=== PATIENT | female | born 1970 | race African-American/Black ===

== ENCOUNTER → 2020-01-26 09:00 | Outpatient (BNVA) | payer SELFPAY | PROVIDERS: Visit Provider Physician Assistant Medical | DX: Z76.89 Persons encountering health services in other specified circumstances (principal) ==

== ENCOUNTER → 2020-06-07 10:48 | Outpatient (BNVA) | payer OTHER, SELFPAY | PROVIDERS: Visit Provider Internal Medicine | DX: M75.102 Unspecified rotator cuff tear or rupture of left shoulder, not specified as traumatic (principal) | CPT/HCPCS: 99202 ==

== ENCOUNTER → 2020-06-14 09:01 | Outpatient (BNVA) | payer OTHER, SELFPAY | PROVIDERS: Visit Provider Internal Medicine | DX: M75.42 Impingement syndrome of left shoulder (principal) | CPT/HCPCS: 99213 ==

== ENCOUNTER → 2020-06-21 | Outpatient (BNVA) | payer OTHER, SELFPAY | PROVIDERS: Visit Provider Internal Medicine | DX: M75.42 Impingement syndrome of left shoulder (principal) | CPT/HCPCS: 99213 ==

== ENCOUNTER → 2020-07-05 11:35 | Outpatient (BNVA) | payer OTHER, SELFPAY | PROVIDERS: Visit Provider Internal Medicine | DX: S46.012D Strain of muscle(s) and tendon(s) of the rotator cuff of left shoulder, subsequent encounter (principal); X58.XXXD Exposure to other specified factors, subsequent encounter | CPT/HCPCS: 99213 ==

== ENCOUNTER → 2020-07-19 13:26 | Outpatient (BNVA) | payer OTHER, SELFPAY | PROVIDERS: Visit Provider Internal Medicine | DX: M25.512 Pain in left shoulder (principal) | CPT/HCPCS: 99213 ==

== ENCOUNTER 2024-07-10 15:16 | Outpatient (REF) | payer OTHER, SELFPAY ==
[2024-07-10 15:38] LABS: MANUAL DIFF FLAG NO
[2024-07-10 15:52] LABS: Basophils Percent Auto 0.5 % (0-2); Eosinophils Absolute Auto 0.1 X10*3/uL (0.0-0.4); Eosinophils Percent Auto 1.4 % (0-4); Hematocrit 42.7 % (37.0-47.0); Hemoglobin 14.6 g/dl (12.0-16.0); Imm Gran Abs Auto 0.03 X10*3/uL (0.00-0.03); Imm Gran Pct Auto 0.4 % (0.0-0.4); Lymphocytes Absolute Auto 2.8 X10*3/uL (1.2-4.9); Lymphocytes Percent Auto 36.5 % (20-40); Mean Corpuscular HGB Conc 34.2 g/dl (31.0-35.0); Mean Corpuscular Hemoglobin 29.3 pg (27.0-33.0); Mean Corpuscular Volume 85.7 fL (80.0-98.0); Mean Platelet Volume 8.2 fL (9.4-12.3); Monocytes Absolute Auto 0.5 X10*3/uL (0.1-1.2); Monocytes Percent Auto 6.5 % (2-11); Neutrophils Absolute Auto 4.2 x10*3/uL (2.0-8.3); Neutrophils Percent Auto 54.7 % (45-73); Platelet Count 393 X10*3/uL (160-400); Red Blood Count 4.98 X10*6/uL (4.20-5.50); Red Cell Distribution Width 12.6 % (11.0-16.0); White Blood Count 7.6 X10*3/uL (4.8-10.8)
[2024-07-10 15:59] LABS: Estimated Average Glucose 157 mg/dL; Hemoglobin A1C 207.5473 umol/L; Hemoglobin A1c % 7.1 % (<6.0); Total Hemoglobin (HGBA1C) 3830.6089 umol/L
[2024-07-10 16:33] LABS: Alanine Aminotransferase 33 U/L (0-31); Alkaline Phosphatase 129 U/L (39-117); Anion Gap 14 (12-20); Aspartate Amino Transferase 31 U/L (5-31); Bilirubin Total 0.5 mg/dL (0.0-1.0); Blood Urea Nitrogen 13 mg/dL (9-16); Calcium 9.7 mg/dL (8.4-10.2); Carbon Dioxide 26 mmol/L (22-29); Chloride 104 mmol/L (96-108); Cholesterol 196 mg/dL (<200); Estimated Glomerular Filt Rate > 60; Glucose Random 111 mg/dL (60-115); HDL Cholesterol 60 mg/dL (>40); LDL Cholesterol Calculated 122 mg/dL (<100); Sodium 140 mmol/L (135-145); Total Protein 8.4 g/dL (6.5-8.0); Triglycerides 70 mg/dL (<150)
[2024-07-10 16:35] LABS: Creatinine Urine 270.56 mg/dL; Microalbum/Creatinine Ratio Ur 8.5 ug/mg cr (<30)
[2024-07-10 16:43] LABS: Vitamin B12 401 pg/mL (200-900)
[2024-07-10 17:39] LABS: Reflex LDLD? No
--- OUTSIDE RECORDS SUMMARY | 2024-07-10 18:04 | XMS_ITS | Clinical Summary ---
Author Organization [facility] [address] [place] [address] [place] [phone] Phone Care Team Providers Care Room Service Attendant Name Role Phone Refugio Godwin DO Primary Care Provider [phone] Allergies No known active allergies Medications FLUoxetine (PROzac) 10 mg capsule Take 1 capsule (10 mg total) by mouth 1 (one) time each day. 12/17/19 23 Active blood-glucose meter kit To check sugars 11/02/19 24 025 Active triamcinolone (KENALOG) 0.1 % cream Apply 3 times a day as needed for pruritis 07/10/19 22 Active blood sugar diagnostic (FreeStyle Lite Strips) test stripIndicatio ns:Type 2 diabetes mellitus with other specified complication, without long-term current use of insulin (CMS/[facility] V24, CMS/[facility] V28) Use as instructed 100 each 3 02/11/20 24 Active freestyle (FreeStyle Lancets) 28 gauge lancetsIndicat ions:Type 2 diabetes mellitus with other specified complication, without long-term current use of insulin (CMS/HCC V24, CMS/HCC V28) UP TO 2 TIMES DAILY 100 each 2 02/11/20 24 Active losartan (COZAAR) 25 mg tabletIndicati ons:Type 2 diabetes mellitus with other specified complication, without long-term current use of insulin (CMS/HCC V24, CMS/HCC V28) Take 0.5 tablets (12.5 mg total) by mouth 1 (one) time each day. 90 tablet 1 02/11/20 24 Active atorvastatin (LIPITOR) 10 mg tabletIndicati ons:Type 2 diabetes mellitus with other specified complication, without long-term current use of insulin ([facility] V24, [facility] V28) Take 1 tablet (10 mg total) by mouth 1 (one) time each day. 90 tablet 1 02/11/20 24 Active amoxicillin (AMOXIL) 875 mg tablet Take 1 tablet (875 mg total) by mouth 2 (two) times a day. for 7 days 02/19/20 24 Active metFORMIN (GLUCOPHAGE) 1,000 mg tablet Take 1 tablet (1,000 mg total) by mouth 2 (two) times a day with meals. 03/23/19 25 Active Mounjaro 5 mg/0.5 mL injection ADMINISTER 5 MG UNDER THE SKIN 1 TIME A WEEK 2 mL 1 07/11/19 25 Active Mounjaro 5 mg/0.5 mL injection ADMINISTER 5 MG UNDER THE SKIN 1 TIME A WEEK 2 mL 1 04/21/19 25 025 Discontinued Active Problems Problem Noted Date Diagnosed Date Anxiety 12/29/2023 Constipation 12/29/2023 Migraines 12/29/2023 Heart murmur, systolic 05/14/2021 Overview (12/29/2023): Split S2 Colon polyp 06/09/2019 Overview (12/29/2023): Repeat due 2022 Diabetes mellitus type 2 in nonobese ([facility] V24, [facility] V28) 02/17/2019 Overview (12/29/2023): A1C 03/02 of 14.8, started on metformin Encounters Date Type Department Care Team Description 05/25/2024 3:00 PM EDT Office Visit Orthopedic Surgery - [place] [address] [facility] [address] [place] [phone] Jose Bellamy, DPVonnie Type 2 diabetes mellitus with other specified complication, without long-term current use of insulin ([facility] V24, [facility] V28) (Primary Dx); Metatarsalgia of left foot; Metatarsalgia of right foot; Eccrine poroma of foot, right 05/23/2024 Lab Requisition [facility] - Main Lab [address] [facility] [place] [address] Yasmine Hanson MD Essential (primary) hypertension; Pure hypercholesterolemia, unspecified; Type 2 diabetes mellitus with diabetic neuropathy, unspecified ([facility] V24, [facility] V28) 04/13/2024 2:30 PM EST Consult Orthopedic Surgery - [place] [address] [facility] [address] [place] [address] Jose Bellamy DPM Metatarsalgia of left foot (Primary Dx); Type 2 diabetes mellitus with other specified complication, without long-term current use of insulin ([facility] V24, [facility] V28); Metatarsalgia of right foot; Hammertoes of both feet; Eccrine poroma of foot, right from Last 3 Months Immunizations Name Administration Dates Next Due Influenza Quadravalent, MDCK , 0.5ml, preservative free (Flucelvax) 6mo and older 12/22/2022,01/08/2022 Influenza trivalent, 0.5mL, preservative free (Fluarix; FluLaval; Fluzone) ages 6mo and older (Afluria) 3 years and older 12/28/2019,12/13/2014 TEEspy SARS-CoV-2 COVID-19, mRNA, LNP-S, preservative free 03/20/2021 Pneumococcal polysaccharide 23 valent (Pneumovax 23) 2yo and older 01/08/2022 Td Tetanus diptheria (Tdvax) 7yo and older 11/10 Tdap Tetanus diptheria acell ular pertussis (Boostrix; Adacel) 7yo and older 04/07/2011 Surgical History Surgery Date Site/Laterality Comments OTHER SURGICAL HISTORY PROCEDURE: ID TOTAL ABDOMINAL HYSTERECT W/WO RMVL TUBE OVARY; COMMENT: supracervical Medical History Medical History Date Comments H/O joint problems DX:H/O joint problems Anxiety DX:Anxiety Constipation DX:Constipation Migraines DX:Migraines Colon polyp 06/09/2019 DX:Colon polyp; COMMENT: Repeat due 2022 Family History Medical History Relation Name Comments Breast cancer Aunt maternal Hypertension Daughter Stroke Maternal Grandmother Colon cancer Mother Diabetes Mother Diabetes Paternal Grandmother Relation Name Status Comments Aunt Brother 1 Alive Brother 2 Alive Brother 3 Alive Brother 4 Alive Daughter Father Alive Maternal Grandmother Mother Alive Paternal Grandmother Sister 1 Alive Sister 2 Alive Social History Tobacco Use Types Packs/Day Years Used Date Smoking Tobacco: Never Smokeless Tobacco: Never Tobacco Cessation:Counseling Given: Not Answered Alcohol Use Standard Drinks/Week Comments Yes 0 (1 standard drink = 0.6 oz pur e alcohol) Comments No Sex and Gender Information Value Date Recorded Sex Assigned at Not on file Legal Sex Female 10:10 AM EST Gender Identity Not on file Sexual Orientation Not on file Obstetrics History Para Term AB IAB SAB Ectopic Multiple Livin g Live Births 1 1 1 1 Date Outcome GA Total Labor Labor//3rd Weight Sex Type Anes PTL Emilia A1 A5 Name Clin Term Last Filed Vital Signs Vital Sign Reading Time Taken Comments Blood Pressure 132/69 02/11/2024 3:31 PM EST Pulse 76 02/11/2024 3:31 PM EST Temperature 36.3 ??C (97.3 ??F) 02/11/2024 3:31 PM ES T Respiratory Rate - - Oxygen Saturation 98% 02/11/2024 3:31 PM EST Inhaled Oxygen Concentration - - Weight 88.9 kg (196 lb) 05/25/2024 3:14 PM EDT Height 180.3 cm (5' 10.98 ) 05/25/2024 3:14 PM E DT Body Mass Index 27.35 05/25/2024 3:14 PM EDT Plan of Treatment Health Maintenance Due Date Last Done Comments Diabetes: Annual Foot Exam 1981 Hepatitis B Vaccines (1 of 3 - 19+ 3-dose series) 1990 Zoster Vaccines (1 of 2) 1990 Depression Screening 02/21/2022 HIV Screening 02/21/2022 Social Influencers of Health Screening 02/21/2022 Diabetes: Annual GFR (Glomerular Filtration Rate) 07/09/2022 07/09/2021 Pneumococcal Vaccine: 50+ Years (2 of 2 - PCV) 01/08/2023 01/08/2022 Pneumococcal Vaccine: Pediatrics (0 to 5 Years) and At-Risk Patients (6 to 64 Years) (2 of 2 - PCV) 01/08/2023 01/08/2022 COVID-19 Vaccine ( season) 2023 03/20/2021, 07/31/2020, 07/10/2020 Diabetes: Blood Sugar Control Test (HGBA1C) 05/03/2024 11/01/2023, 11/01/2023 Hypertension/CHF/CAD Annual BMP Blood Test 05/23/2024 07/09/2021 Diabetes: Annual Retina Eye Exam 09/27/2024 09/28/2023 Diabetes: Annual Urine Albumin-Creatinine Ratio (uACR) 10/31/2024 11/01/2023 Influenza Vaccine (Season Ended) 2024 12/22/2022, 01/08/2022, 01/22/2021, Additional history exists Breast Cancer Screening 02/13/2026 02/14/20, 02/01/2023, 04/28/2021, Additional history exists Cholesterol Screening (Lipid Panel) 10/31/2028 11/01/2023, 11/01/2023 Colorectal Cancer Screening: Colonoscopy 04/06/2029 04/06/2019 DTaP,Tdap,and Td Vaccines (3 - Td or Tdap) 11/11/2031 11/10/2021, 04/07/2011 Hepatitis C Screening Completed 11/10/2021 HIB Vaccines Aged Out No longer eligi ble based on patient's age to complete this topic HPV Vaccines Aged Out No longer eligi ble based on patient's age to complete this topic Hepatitis A Vaccines Aged Out No long er eligible based on patient's age to complete this topic IPV Vaccines Aged Out No longer eligi ble based on patient's age to complete this topic MMR Vaccines Aged Out No longer eligi ble based on patient's age to complete this topic Meningococcal ACWY Vaccine Aged Out N o longer eligible based on patient's age to complete this topic Meningococcal B Vaccine Aged Out No l onger eligible based on patient's age to complete this topic RSV Immunization Patients Under 20 months Aged Out No longer eligible based on patient's age to complete this topic Varicella Vaccines Aged Out No longer eligible based on patient's age to complete this topic Procedures Procedure Name Priority Date/Time Associated Diagnosis Comments MG MAMMO DIGITAL SCREENING W SAFIA BILAT Routine 02/14/2024 4:18 PM EST Encounter for screening mammogram for breast cancer HM URINE ALBUMIN CREATININE RATIO Routine 11/01/2023 HEMOGLOBIN A1C Routine 11/01/2023 LIPID PANEL Routine 11/01/2023 DIABETES EYE EXAM Routine 09/28/2023 HEPATITIS C SCREENING Routine 11/10/2021 ANNUAL BMP BLOOD TEST Routine 07/09/2021 COLONOSCOPY Routine 04/06/2019 from Last 3 Months or Most Recently Relevant to Health Maintenance Results * MG Mammo Digital Screening w Safia bilat (02/14/2024 4:18 PM EST) Anatomical Region Laterality Modality Breast Bilateral Mammography 02/15/2024 9:04 AM EST Impressions 02/15/2024 9:11 AM EST Stable mammographic appearance of the breasts. ??No evidence of malignancy is seen. A negative mammogram in the presence of a clinically suspicious palpable abnormality does not preclude the possibility of malignancy or alter the indications for biopsy. BI-RADS: ??Category 1: Negative RECOMMENDATION(S): 1: Routine screening mammogram BILATERAL in 1 year. Mammo Location: [facility], [address] [place] [address], [facility], . -------- FINAL REPORT -------- Dictated By: Carin Mijares Dictated Date: 02/15/2024 09:04 ET Assigned Physician: Carin Mijares Reviewed and Electronically Signed By: Carin Mijares Signed Date: 02/15/2024 09:11 ET Workstation ID: [id number] Transcribed By: Self Edit Transcribed Date: 02/15/2024 09:04 ET Narrative 02/15/2024 9:11 AM EST EXAM: MG MAMMO DIGITAL SCREENING W SAFIA BILAT EXAM DATE: 02/14/2024 4:08 PM HISTORY: ??Breast cancer screen, avg risk, asymptomatic (Age => 40y) COMPARISON: Mammograms dating back to 04/18/2019 with most recent of 02/01/2023. TECHNIQUE: Bilateral digital breast tomosynthesis was performed in the CC and MLO projections. Computer aided detection with [employer] AI 3D 3.1 was employed. TISSUE DENSITY: c. ??The breasts are heterogeneously dense. FINDINGS: No suspicious masses, grouped microcalcifications, or areas of architectural distortion are seen. The skin and vascularity are unremarkable. Procedure Note Carin Mijares MD - 02/15/2024 EXAM: MAMMO DIGITAL SCREENING W SAFIA BILAT EXAM DATE: 02/14/2024 4:08 PM HISTORY: Breast cancer screen, avg risk, asymptomatic (Age => 40y) COMPARISON: Mammograms dating back to 04/18/2019 with most recent of02/01/2023. TECHNIQUE: Bilateral digital breast tomosynthesis was performed in the CCand MLO projections. Computer aided detection with [employer] AI 3D 3.1was employed. TISSUE DENSITY: c. The breasts are heterogeneously dense. FINDINGS: No suspicious masses, grouped microcalcifications, or areas ofarchitectural distortion are seen. The skin and vascularity areunremarkable. IMPRESSION: Stable mammographic appearance of the breasts. No evidence of malignancyis seen. A negative mammogram in the presence of a clinically suspicious palpableabnormality does not preclude the possibility of malignancy or alter theindications for biopsy. BI-RADS: Category 1: Negative RECOMMENDATION(S): 1: Routine screening mammogram BILATERAL in 1 year. Mammo Location: [facility], [address] [place] [address], [address], . -------- FINAL REPORT -------- Dictated By: Carin Mijares Dictated Date: 02/15/2024 09:04 ET Assigned Physician: Carin Mijares Reviewed and Electronically Signed By: Carin Mijares Signed Date: 02/15/2024 09:11 ET Workstation ID: [id number] Transcribed By: Self Edit Transcribed Date: 02/15/2024 09:04 ET Result [facility] Refugio Godwni DO IMG BI PROCEDURES Final Result * Urine Albumin Creatinine Ratio (11/01/2023) [facility] Urine Albumin Creatinine Ratio abstracted Result [facility] Provider HEALTH MAINTENANCE Final Result * (ABNORMAL) Hemoglobin A1c (11/01/2023) [facility] Hemoglobin A1C 7.5(A) <=6.5 % Blood Venous blood specimen / Unknown Result [facility] Provider LAB BLOOD ORDERABLES Shiloh l Result * Lipid panel (11/01/2023) [facility] LDL/HDL Ratio 3 0 - 4 Triglycerides 110 0 - 150 mg/dL Cholesterol 150 0 - 200 mg/dL HDL 50 >=40 mg/dL LDL Cholesterol 78 0 - 100 mg/dL Blood Venous blood specimen / Unknown Result [facility] Provider LAB BLOOD ORDERABLES Shiloh l Result * Diabetes Eye Exam (09/28/2023) [facility] Diabetes: Annual Retina Eye Exam abstracted Result [facility] Provider HEALTH MAINTENANCE Final Result * Hepatitis C Screening (11/10/2021) [facility] Hepatitis C Screening abstracted Result [facility] Provider HEALTH MAINTENANCE Final Result * Annual BMP Blood Test (07/09/2021) Pathologist Pending sale to [facility] Annual BMP Blood Test abstracted Result [facility] Provider HEALTH MAINTENANCE Final Result * Colonoscopy (04/06/2019) [facility] Colonoscopy abnormal, abstracted Anatomical Region Laterality Modality Other Result [facility] Provider HEALTH MAINTENANCE Final Result from Last 3 Months or Most Recently Relevant to Health Maintenance Insurance [employer] Care Teams Room Service Attendant Relationship Specialty Start Date End Date Refugio Godwin DO [address] [place] [phone] PCP - General Internal Medicine 03/26/21
--- OUTSIDE RECORDS SUMMARY | 2024-07-10 18:04 | XMS_ITS | Encounter Summary ---
Author Organization [facility] Address [address] [place] [address] Care Team Providers Care Retail Advertising Sales Manager Name Role Phone Refugio Godwin DO Primary Care Provider [phone] Encounter Details Date Type Department Care Team (Late st Contact Info) Description 05/23/2024 Lab Requisition [facility] - Main Lab [address] [facility] [place] [address] Yasmine Hanson MD [address] [place] [address] [place] [address] Essential (primary) hypertension; Pure hypercholesterolemia , unspecified; Type 2 diabetes mellitus with diabetic neuropathy, unspecified (CMS/HCC V24, CMS/HCC V28) Social History Tobacco Use Types Packs/Day Years Used Date Smoking Tobacco: Never Smokeless Tobacco: Never Alcohol Use Standard Drinks/Week Comments Yes 0 (1 standard drink = 0.6 oz pur e alcohol) Comments No Sex and Gender Information Value Date Recorded Sex Assigned at Not on file Legal Sex Female 10:10 AM EST Gender Identity Not on file Sexual Orientation Not on file documented as of this encounter Plan of Treatment Scheduled Orders Name Type Priority Associated Diagnoses Orde r Schedule Comprehensive metabolic panel Lab Routine Essential (primary) hypertension Pure hypercholesterolemia, unspecified Type 2 diabetes mellitus with diabetic neuropathy, unspecified (CMS/HCC) Ordered: 05/23/2024 CBC and differential Lab Routine Type 2 diabetes mellitus with diabetic neuropathy, unspecified (CMS/HCC) Ordered: 05/23/2024 Lipid panel with reflex to direct LDL Lab Routine Pure hypercholesterolemia, unspecified Ordered: 05/23/2024 Vitamin B12 Lab Routine Type 2 diabetes mellitus with diabetic neuropathy, unspecified (CMS/HCC) Ordered: 05/23/2024 Microalbumin creatinine urine ratio Lab Routine Type 2 diabetes mellitus with diabetic neuropathy, unspecified ([facility]) Ordered: 05/23/2024 Hemoglobin A1c Lab Routine Ordered: 0 05/23/2024 documented as of this encounter Visit Diagnoses Diagnosis Essential (primary) hypertension Unspecified essential hypertension Pure hypercholesterolemia, unspecified Type 2 diabetes mellitus with diabetic neuropathy, unspecified (CMS/[facility] V24, [facility] V28) documented in this encounter Care Teams Retail Advertising Sales Manager Relationship Specialty Start Date End Date Refugio Godwin DO [address] [place] [phone] PCP - General Internal Medicine 03/26/21 documented as of this encounter
== END 2024-07-10 15:17 | disposition home or self-care (01) ==
LOC: HO.LAB 15:16
PROVIDERS: PCP Internal Medicine; Visit Provider Internal Medicine
DX: Z00.00 Encounter for general adult medical examination without abnormal findings (principal); E11.40 Type 2 diabetes mellitus with diabetic neuropathy, unspecified; E78.00 Pure hypercholesterolemia, unspecified; I10 Essential (primary) hypertension; L84 Corns and callosities; Z86.0101 Personal history of adenomatous and serrated colon polyps; Z90.710 Acquired absence of both cervix and uterus
CPT/HCPCS: 36415; 80053; 80061; 82043; 82570; 82607; 83036; 85025

== ENCOUNTER 2024-08-14 08:58 | Outpatient (REF) | payer OTHER, SELFPAY ==
--- NOTE | ~2024-08-14 | XR_ITS ---
EXAMINATION: XR HIP 2 OR MORE VIEWS RIGHT HISTORY: OSTEOARTHRITIS RIGHT HIP COMPARISON: There are no prior studies available for comparison. FINDINGS: Two views of the right hip are submitted. Osseous mineralization is normal. There is no fracture or dislocation. There is mild osteoarthritis with joint space narrowing, small osteophyte formation, and subchondral cyst formation. The soft tissues are unremarkable. XR/XR hip RT min 2V IMPRESSION: Osteoarthritis of the right hip as described. Electronically signed by: Hayder Garcia MD 08/14/2024 10:05 AM EDT
--- OUTSIDE RECORDS SUMMARY | 2024-08-14 09:29 | XMS_ITS | Encounter Summary ---
Author Organization [facility] Address [address] [place] [address] Care Team Providers Care Outsoles Channel Opener Name Role Phone Refugio Godwin DO Primary Care Provider [phone] Encounter Details Date Type Department Care Team (Late st Contact Info) Description 05/23/2024 Lab Requisition [facility] - Main Lab [address] [facility] [place] [address] Yasmine Hanson MD [address] [place] [address] [place] [address] Essential (primary) hypertension; Pure hypercholesterolemia , unspecified; [...] 2 diabetes mellitus with diabetic neuropathy, unspecified ([facility]) Ordered: 05/23/2024 Hemoglobin A1c Lab Routine Ordered: 0 05/23/2024 documented as of this encounter Visit Diagnoses Diagnosis Essential (primary) hypertension Unspecified essential hypertension Pure hypercholesterolemia, unspecified Type 2 diabetes mellitus with diabetic neuropathy, unspecified (CMS/[facility] V24, [facility] V28) documented in this encounter Care Teams Outsoles Channel Opener Relationship Specialty Start Date End Date Refugio Godwin DO [address] [place] [phone] PCP - General Internal Medicine 03/26/21 documented as of this encounter
[2024-08-14 10:22] LABS: Estimated Average Glucose 160 mg/dL; Hemoglobin A1C 210.8299 umol/L; Hemoglobin A1c % 7.2 % (<6.0); Total Hemoglobin (HGBA1C) 3810.1056 umol/L
[2024-08-14 11:01] LABS: Alanine Aminotransferase 37 U/L (0-31); Albumin Level 4.8 g/dL (3.5-5.0); Alkaline Phosphatase 134 U/L (39-117); Anion Gap 13 (12-20); Aspartate Amino Transferase 28 U/L (5-31); Bilirubin Total 0.6 mg/dL (0.0-1.0); Blood Urea Nitrogen 12 mg/dL (9-16); Calcium 9.7 mg/dL (8.4-10.2); Carbon Dioxide 26 mmol/L (22-29); Chloride 105 mmol/L (96-108); Cholesterol 156 mg/dL (<200); Estimated Glomerular Filt Rate > 60; Glucose Random 131 mg/dL (60-115); HDL Cholesterol 54 mg/dL (>40); LDL Cholesterol Calculated 86 mg/dL (<100); Sodium 140 mmol/L (135-145); Total Protein 7.8 g/dL (6.5-8.0); Triglycerides 81 mg/dL (<150)
== END 2024-08-14 08:59 | disposition home or self-care (01) ==
LOC: HO.XRAY 08:58
PROVIDERS: PCP Internal Medicine; Visit Provider Internal Medicine
DX: E11.9 Type 2 diabetes mellitus without complications (principal); E78.00 Pure hypercholesterolemia, unspecified; M16.31 Unilateral osteoarthritis resulting from hip dysplasia, right hip; Z68.27 Body mass index [BMI] 27.0-27.9, adult
CPT/HCPCS: 36415; 73502; 80053; 80061; 83036

== ENCOUNTER → 2024-08-14 09:08 | Outpatient (BNV) | payer OTHER, SELFPAY | PROVIDERS: PCP Internal Medicine; Visit Provider Radiology Diagnostic Radiology | DX: M16.11 Unilateral primary osteoarthritis, right hip (principal) | CPT/HCPCS: 73502 ==

== ENCOUNTER 2024-10-26 08:44 | Outpatient (REF) | payer OTHER, SELFPAY ==
--- OUTSIDE RECORDS SUMMARY | 2024-10-27 09:01 | XMS_ITS | Encounter Summary ---
Author Organization [facility] Address [address] [place] [address] Care Team Providers Care Agronomy Instructor Name Role Phone Refugio Godwin DO Primary Care Provider Encounter Details Date Type Department Care Team (Late st Contact Info) Description 05/23/[address] [facility] - Main Lab [address] [facility] [place] [address] Yasmine Hanson MD [address] [place] [address] [place] [address] Essential (primary) hypertension; Pure hypercholesterolemia , unspecified; [...] mellitus with diabetic neuropathy, unspecified ([facility]) Ordered: 05/23/2024 Hemoglobin A1c Lab Routine Ordered: 0 05/23/2024 documented as of this encounter Visit Diagnoses Diagnosis Essential (primary) hypertension Unspecified essential hypertension Pure hypercholesterolemia, unspecified Type 2 diabetes mellitus with diabetic neuropathy, unspecified (CMS/[facility] V24, [facility] V28) documented in this encounter Care Teams Agronomy Instructor Relationship Specialty Start Date End Date Refugio Godwin DO [address] [place] [id number] PCP - General Internal Medicine 03/26/21 documented as of this encounter
== END 2024-10-26 08:45 | disposition home or self-care (01) ==
LOC: HO.HOSX 08:44
PROVIDERS: Visit Provider Physician Assistant
DX: Z13.89 Encounter for screening for other disorder (principal)

== ENCOUNTER 2024-10-27 09:53 | Outpatient (AMB) | payer OTHER, SELFPAY ==
--- NOTE | 2024-10-27 10:21 | MHC.OFFVIS ---
Vital Signs 10/27/24 10:26 Height 5 ft 11 in Weight 203 lb BMI 28.3 Handedness Right Intake Visit Reasons: New Pt - right hip OA Intake Note: Donna is a 54 year old female who presents today as a new patient for a evaluation of her right hip pain. History of 2 fall back in April. Patient reports ongoing pain for about 3 years and its been getting worse this year. She states that her pain is on the groin area. Patient mentions that her pain is worse when she is sitting and laying down. Patient expresses if she puts any pressure in her right hip it causes her a lot of pain. She states that she was given some pain medication from her PCP with relief. IMPRESSION: Osteoarthritis of the right hip as described. Allergies No Known Allergies Allergy (Verified 10/27/24 10:24) HPI HPI New Pt - right hip OA: Details: Ms. Barajas is a 54-year-old female who presents to the office today for evaluation of right hip pain. She reports that she slipped and fell on ice twice in April of this year. She reports there has been ongoing pain for the past 3 years but has been progressively getting worse. She reports that the pain is in her groin. She experiences worsening pain with sitting and lying down. Occasionally when symptoms are severe she is unable to bear weight on the right lower extremity. 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 No [id number] restrictions. No tenderness to palpation over the greater trochanteric bursa. 5/5 strength with resisted hip flexion, knee extension, abduction, and abduction. Able to perform straight leg raise. NVI. Psych Appearance: grossly normal Mental Status: mental status grossly normal Attitude: cooperative Assessment & Plan Assessment & Plan (1) Osteoarthritis of right hip: Code(s): M16.11 - Unilateral primary osteoarthritis, right hip Category: Medical Plan Ms. Barajas is a 54-year-old female who presents to the office today for evaluation of right hip pain. She reports that she slipped and fell on ice twice in April of this year. She reports there has been ongoing pain for the past 3 years but has been progressively getting worse. She reports that the pain is in her groin. She experiences worsening pain with sitting and lying down. Occasionally when symptoms are severe she is unable to bear weight on the right lower extremity. While the office today, we discussed conservative treatment options such as cortisone injection and physical therapy. Patient would like to move forward with a cortisone injection. An order has been placed for her to have an intra-articular cortisone injection performed at the hospital under imaging guidance. Of note, the patient does have diabetes and therefore 40 mg of Depo-Medrol be recommended. Additionally, I have placed an order for physical therapy which the patient will attend. She will follow up PRN, sooner if needed. X-rays of the pelvis which were obtained while in the office today and were reviewed by me, Magdalene Faustin PA-C, revealed right hip osteoarthritis. Incidentally, the patient also has a quite significant curvature of her spine. Orders: Orders XR pelvis 1-2V Today M25.559 - Pain in unspecified hip Coding Level of Care Code New Pt Level 3 (53860) Diagnoses Osteoarthritis of right hip M16.11
[2024-10-27 10:26] VITALS: BMI 28.3
== END 2024-10-27 11:13 | disposition home or self-care (01) ==
LOC: HO.HOS 09:54
PROVIDERS: PCP Internal Medicine; Visit Provider Physician Assistant
DX: M16.11 Unilateral primary osteoarthritis, right hip (principal)
CPT/HCPCS: 99203

== ENCOUNTER → 2024-10-27 10:05 | Outpatient (BNV) | payer OTHER, SELFPAY | PROVIDERS: Visit Provider Radiology Diagnostic Radiology | DX: M25.559 Pain in unspecified hip (principal) | CPT/HCPCS: 72170 ==

== ENCOUNTER 2024-10-27 10:33 | Outpatient (REF) | payer OTHER, SELFPAY ==
--- NOTE | ~2024-10-27 | XR_ITS ---
EXAMINATION: XR PELVIS 1-2 VIEWS HISTORY: M25.559 - Pain in unspecified hip COMPARISON: Correlation is made with plain films of the right hip dated 08/14/2024. FINDINGS: A single AP view of the pelvis is submitted. Osseous mineralization is normal. There is no fracture or dislocation. The hip and sacroiliac joint spaces are maintained. The soft tissues are unremarkable. XR/XR pelvis 1-2V IMPRESSION: Unremarkable examination of the pelvis. Electronically signed by: Hayder Garcia MD 10/27/2024 10:53 AM EDT
--- OUTSIDE RECORDS SUMMARY | 2024-10-28 10:35 | XMS_ITS | Encounter Summary ---
Author Organization [facility] Address [address] [place] [address] Care Team Providers Care Optical Fabrication Technician Name Role Phone Refugio Godwin DO Primary Care Provider Encounter Details Date Type Department Care Team (Late st Contact Info) Description 05/23/2024 Lab Requisition [facility] - Main Lab [address] [facility] [place] [address] Yasmine Hanson MD [address] [place] [address] [place] [id number] Essential (primary) hypertension; Pure hypercholesterolemia , unspecified; [...] 2 diabetes mellitus with diabetic neuropathy, unspecified ([facility]) Ordered: 05/23/2024 Hemoglobin A1c Lab Routine Ordered: 0 05/23/2024 documented as of this encounter Visit Diagnoses Diagnosis Essential (primary) hypertension Unspecified essential hypertension Pure hypercholesterolemia, unspecified Type 2 diabetes mellitus with diabetic neuropathy, unspecified ([facility] V24, [facility] V28) documented in this encounter Care Teams Optical Fabrication Technician Relationship Specialty Start Date End Date Refugio Godwin DO [address] [place] [id number] PCP - General Internal Medicine 03/26/21 documented as of this encounter
== END 2024-10-27 10:34 | disposition home or self-care (01) ==
LOC: HO.HOSX 10:33
PROVIDERS: Visit Provider Physician Assistant
DX: M16.11 Unilateral primary osteoarthritis, right hip (principal); M25.551 Pain in right hip; Z68.28 Body mass index [BMI] 28.0-28.9, adult
CPT/HCPCS: 72170

== ENCOUNTER 2024-11-15 12:54 | Outpatient (REF) | payer OTHER, SELFPAY ==
--- NOTE | ~2024-11-15 | FL_ITS ---
Right HIP INTRA-ARTICULAR STEROID INJECTION INDICATIONS: Right hip pain. Intra-articular steroid injection is requested by provider. PROCEDURE: Risks and benefits and possible complications were discussed with the patient and the consent form was signed. The patient was placed supine on the fluoroscopy table. The right hip was prepped and draped in normal sterile fashion. 1% buffered lidocaine was used for anesthesia. A 22-gauge spinal needle was used to access the joint. Intra-articular position of the needle within the shoulder joint was verified using 3 cc of Omnipaque 300. A total of 5 mL 1% lidocaine and 40 mg Medrol was then injected into the hip joint. The needle was then removed and a Band-Aid was applied to the injection site. The patient tolerated the procedure well. There were no immediate complications. FL/FL Guided Asp Inj Major Jt RT IMPRESSION: Successful fluoroscopic guided intra-articular steroid injection into the right hip joint. Electronically signed by: Anil Cisneros MD 11/15/2024 02:13 PM EDT
[2024-11-15] MEDS: iohexoL 300 MG/ML 50 ML INFUS..BTL INTRAARTIC (13:58)
[2024-11-15] MEDS: Lidocaine HCl 2 % 20 ML VIAL 3 ML INFILTRATI (14:02)
--- OUTSIDE RECORDS SUMMARY | 2024-11-15 15:16 | XMS_ITS | Encounter Summary ---
Author Organization [facility] Address [address] [place] [address] Care Team Providers Care Combine Inspector Name Role Phone Refugio Godwin DO Primary Care Provider [phone] Encounter Details Date Type Department Care Team (Late st Contact Info) Description 05/23/2024 Lab Requisition [facility] - Main Lab [address] [facility] [place] [address] Yasmine Hanson MD [address] [place] [address] [place] [id number] Essential (primary) hypertension; Pure hypercholesterolemia , unspecified; [...] 2 diabetes mellitus with diabetic neuropathy, unspecified ([facility]) Ordered: 05/23/2024 Hemoglobin A1c Lab Routine Ordered: 0 05/23/2024 documented as of this encounter Visit Diagnoses Diagnosis Essential (primary) hypertension Unspecified essential hypertension Pure hypercholesterolemia, unspecified Type 2 diabetes mellitus with diabetic neuropathy, unspecified ([facility] V24, [facility] V28) documented in this encounter Care Teams Combine Inspector Relationship Specialty Start Date End Date Refugio Godwin DO [address] [place] [id number] PCP - General Internal Medicine 03/26/21 documented as of this encounter
--- OUTSIDE RECORDS SUMMARY | 2024-11-15 15:16 | XMS_ITS | Clinical Summary ---
Author Organization [facility] [address] [place] [address] [place] [phone] Phone Care Team Providers Care Scoreboard Operator Name Role Phone Refugio Godwin DO Primary Care Provider [phone] Allergies No known active allergies Medications FLUoxetine (PROzac) 10 mg capsule Take 1 capsule (10 mg total) by mouth 1 (one) time each day. 3 Active blood-glucose meter kit To check sugars 4 Active triamcinolone (KENALOG) 0.1 % cream Apply 3 times a day as needed for pruritis 2 Active blood sugar diagnostic (FreeStyle Lite Strips) test stripIndication s:Type 2 diabetes mellitus with other specified complication, without long-term current use of insulin (CMS/[facility] V24, [facility] V28) Use as instructed 100 each 3 4 Active freestyle (FreeStyle Lancets) 28 gauge lancetsIndicati ons:Type 2 diabetes mellitus with other specified complication, without long-term current use of insulin (CMS/[facility] V24, CMS/HCC V28) UP TO 2 TIMES DAILY 100 each 2 4 Active losartan (COZAAR) 25 mg tabletIndicatio ns:Type 2 diabetes mellitus with other specified complication, without long-term current use of insulin (CMS/[facility] V24, CMS/HCC V28) Take 0.5 tablets (12.5 mg total) by mouth 1 (one) time each day. 90 tablet 1 4 Active atorvastatin (LIPITOR) 10 mg tabletIndicatio ns:Type 2 diabetes mellitus with other specified complication, without long-term current use of insulin ([facility] V24, [facility] V28) Take 1 tablet (10 mg total) by mouth 1 (one) time each day. 90 tablet 1 4 Active amoxicillin (AMOXIL) 875 mg tablet Take 1 tablet (875 mg total) by mouth 2 (two) times a day. for 7 days 4 Active Mounjaro 5 mg/0.5 mL injection ADMINISTER 5 MG UNDER THE SKIN 1 TIME A WEEK 2 mL 1 5 Active metFORMIN (GLUCOPHAGE) 1,000 mg tablet TAKE 1 TABLET BY MOUTH TWICE DAILY WITH MEALS 180 tablet 5 Active Active Problems Problem Noted Date Diagnosed Date Anxiety 12/29/2023 Constipation 12/29/2023 Migraines 12/29/2023 Heart murmur, systolic 05/14/2021 Overview (12/29/2023): Split S2 Colon polyp 06/09/2019 Overview (12/29/2023): Repeat due 2022 Diabetes mellitus type 2 in nonobese ([facility] V24, [facility] V28) 02/17/2019 Overview (12/29/2023): A1C 03/02 of 14.8, started on metformin Immunizations Name Administration Dates Next Due Influenza Quadravalent, MDCK , 0.5ml, preservative free (Flucelvax) 6mo and older 12/22/2022,01/08/2022 Influenza trivalent, 0.5mL, preservative free (Fluarix; FluLaval; Fluzone) ages 6mo and older (Afluria) 3 years and older 12/28/2019,12/13/2014 Pfizer SARS-CoV-2 COVID-19, mRNA, LNP-S, preservative free 03/20/2021 Pneumococcal polysaccharide 23 valent (Pneumovax 23) 2yo and older 01/08/2022 Td Tetanus diptheria (Tdvax) 7yo and older 11/10 Tdap Tetanus diptheria acell ular pertussis (Boostrix; Adacel) 7yo and older 04/07/2011 Surgical History Surgery Date Site/Laterality Comments OTHER SURGICAL HISTORY PROCEDURE: TN TOTAL ABDOMINAL HYSTERECT W/WO RMVL TUBE OVARY; [...] 1 1 Date Outcome GA Total Labor Labor/2nd/3rd Weight Sex Type Anes PTL Emilia A1 A5 Name Clin Term Last Filed Vital Signs Vital Sign Reading Time Taken Comments Blood Pressure 132/69 02/11/2024 3:31 PM EST Pulse 76 02/11/2024 3:31 PM EST Temperature 36.3 C (97.3 F) 02/11/2024 3:31 PM EST Respiratory Rate - - Oxygen Saturation 98% [...] 1990 Zoster Vaccines (1 of 2) 1990 HIV Screening 02/21/2022 Social Influencers of Health Screening 02/21/2022 Diabetes: Annual GFR (Glomerular Filtration Rate) 07/09/2022 07/09/2021 Pneumococcal Vaccine: 50+ Years (2 of 2 - PCV) 01/08/2023 01/08/2022 COVID-19 Vaccine (4 - season) 2023 03/20/2021, 07/31/2020, 07/10/2020 Depression Screening 03/15/2024 Diabetes: Blood Sugar Control Test (HGBA1C) 05/03/2024 11/01/2023, 11/01/2023 Hypertension/CHF/CAD Annual BMP Blood Test 05/23/2024 07/09/2021 Diabetes: Annual Retina Eye Exam 09/27/2024 09/28/2023 Diabetes: Annual Urine Albumin-Creatinine Ratio (uACR) 10/31/2024 11/01/2023 Influenza Vaccine (#1) 2024 , 01/08/2022, 01/22/2021, Additional history exists Breast Cancer [...] Diagnosis Comments MG MAMMO DIGITAL SCREENING W RONALD BILAT Routine 02/14/2024 4:18 PM EST Encounter for screening mammogram for breast cancer URINE ALBUMIN CREATININE RATIO Routine 11/01/2023 HEMOGLOBIN A1C Routine 11/01/2023 LIPID PANEL Routine 11/01/2023 DIABETES EYE EXAM Routine 09/28/2023 HEPATITIS C SCREENING Routine 11/10/2021 ANNUAL BMP BLOOD TEST Routine 07/09/2021 COLONOSCOPY Routine 04/06/2019 from Last 3 Months or Most Recently Relevant to Health Maintenance Results * MG Mammo Digital Screening w Ronald bilat (02/14/2024 4:18 PM EST) Anatomical Region Laterality Modality Breast Bilateral Mammography 02/15/2024 9:04 AM EST Impressions 02/15/2024 9:11 AM EST Stable mammographic appearance of the breasts. No evidence of malignancy is seen. A negative mammogram in the presence of a clinically suspicious palpable abnormality does not preclude the possibility of malignancy or alter the indications for biopsy. BI-RADS: Category 1: Negative RECOMMENDATION(S): 1: Routine screening mammogram BILATERAL in 1 year. Mammo Location: [facility], [address] [place] [address], [id number], . -------- FINAL REPORT -------- Dictated By: Carin Mijares Dictated Date: 02/15/2024 09:04 ET Assigned Physician: Carin Mijares Reviewed and Electronically Signed By: Carin Mijares Signed Date: 02/15/2024 09:11 ET Workstation ID: [id number] Transcribed By: Self Edit Transcribed Date: 02/15/2024 09:04 ET Narrative 02/15/2024 9:11 AM EST EXAM: MAMMO DIGITAL SCREENING W RONALD BILAT EXAM DATE: 02/14/2024 4:08 PM HISTORY: Breast cancer screen, avg risk, asymptomatic (Age => 40y) COMPARISON: Mammograms dating back to 04/18/2019 with most recent of 02/01/2023. TECHNIQUE: Bilateral digital breast tomosynthesis was performed in the CC and MLO projections. Computer aided detection with Spacious App AI 3D 3.1 was employed. TISSUE DENSITY: c. The breasts are heterogeneously dense. FINDINGS: No suspicious masses, grouped microcalcifications, or areas of architectural distortion are seen. The skin and vascularity are unremarkable. Procedure Note Carin Mijares MD - 02/15/2024 EXAM: MAMMO DIGITAL SCREENING W RONALD BILAT EXAM DATE: 02/14/2024 4:08 PM HISTORY: Breast cancer screen, avg risk, asymptomatic (Age => 40y) COMPARISON: Mammograms dating back to 04/18/2019 with most recent of02/01/2023. TECHNIQUE: Bilateral digital breast tomosynthesis was performed in the CCand MLO projections. Computer aided detection with PerkleD Vitasol AI 3D 3.1was employed. TISSUE DENSITY: c. [...] mammogram BILATERAL in 1 year. Mammo Location: [facility], [address] [place] [address], [id number], . -------- FINAL REPORT -------- Dictated By: Carin Mijares Dictated Date: 02/15/2024 09:04 ET Assigned Physician: Carin Mijares Reviewed and Electronically Signed By: Carin Mijares Signed Date: 02/15/2024 09:11 ET Workstation ID: [id number] Transcribed By: Self Edit Transcribed Date: 02/15/2024 09:04 ET Result [facility] Refugio Zackaryambrosio DO IMG BI PROCEDURES Final Result * Urine Albumin Creatinine Ratio (11/01/2023) [facility] Urine Albumin Creatinine Ratio abstracted Result [facility] Provider HEALTH MAINTENANCE Final Result * (ABNORMAL) Hemoglobin A1c (11/01/2023) [facility] Hemoglobin A1C 7.5(A) <=6.5 % Blood Venous blood specimen / Unknown Result [facility] Provider LAB BLOOD ORDERABLES Shiloh l Result * Lipid panel (11/01/2023) [facility] LDL/HDL Ratio 3 0 - 4 Triglycerides 110 0 - 150 mg/dL Cholesterol 150 0 - 200 mg/dL HDL 50 >=40 mg/dL LDL Cholesterol 78 0 - 100 mg/dL Blood Venous blood specimen / Unknown Result [facility] Provider LAB BLOOD ORDERABLES Shiloh l Result * Diabetes Eye Exam (09/28/2023) [facility] Diabetes: Annual Retina Eye Exam abstracted Result [facility] Provider HEALTH MAINTENANCE Final Result * Hepatitis C Screening (11/10/2021) [facility] Hepatitis C Screening abstracted Result [facility] Provider HEALTH MAINTENANCE Final Result * Annual BMP Blood Test (07/09/2021) [facility] Annual BMP Blood Test abstracted Result [facility] Provider HEALTH MAINTENANCE Final Result * Colonoscopy (04/06/2019) [facility] Colonoscopy abnormal, abstracted Anatomical Region Laterality Modality Other us Historical Provider HEALTH MAINTENANCE Final Result from Last 3 Months or Most Recently Relevant to Health Maintenance Insurance [employer] [place] [facility] Care Teams Scoreboard Operator Relationship Specialty Start Date End Date Refugio Godwin DO [address] [place] [id number] PCP - General Internal Medicine 03/26/21
== END 2024-11-15 12:55 | disposition home or self-care (01) ==
LOC: HO.XRAY 12:54
PROVIDERS: Visit Provider Physician Assistant
DX: M16.11 Unilateral primary osteoarthritis, right hip (principal)
CPT/HCPCS: 20610; 77002; J1010; J2003; Q9967

== ENCOUNTER → 2024-11-15 12:55 | Outpatient (BNV) | payer OTHER, SELFPAY | PROVIDERS: Visit Provider Radiology Diagnostic Radiology | DX: M16.11 Unilateral primary osteoarthritis, right hip (principal) | CPT/HCPCS: 20610; 77002 ==

== ENCOUNTER 2025-01-31 15:25 | Outpatient (REF) | payer OTHER, SELFPAY ==
[2025-01-31 17:13] LABS: Alanine Aminotransferase 21 U/L (0-31); Albumin Level 4.7 g/dL (3.5-5.0); Alkaline Phosphatase 97 U/L (39-117); Anion Gap 11 (12-20); Aspartate Amino Transferase 29 U/L (5-31); Blood Urea Nitrogen 16 mg/dL (9-16); Calcium 9.3 mg/dL (8.4-10.2); Carbon Dioxide 28 mmol/L (22-29); Chloride 107 mmol/L (96-108); Cholesterol 108 mg/dL (<200); Estimated Glomerular Filt Rate > 60; HDL Cholesterol 41 mg/dL (>40); Potassium 3.5 mmol/L (3.3-5.1); Sodium 142 mmol/L (135-145); Total Protein 7.1 g/dL (6.5-8.0); Triglycerides 56 mg/dL (<150)
== END 2025-01-31 15:26 | disposition home or self-care (01) ==
LOC: HO.LAB 15:25
PROVIDERS: PCP Internal Medicine; Visit Provider Internal Medicine
DX: M16.11 Unilateral primary osteoarthritis, right hip (principal); E11.9 Type 2 diabetes mellitus without complications; E78.00 Pure hypercholesterolemia, unspecified; Z68.27 Body mass index [BMI] 27.0-27.9, adult
CPT/HCPCS: 36415; 80053; 80061; 83036